=== PATIENT | male | born 2000 | race African-American/Black ===

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

== ENCOUNTER → 2025-02-19 | Emergency (ER) | payer MEDICAID, OTHER ==
[~2025-02-19] VITALS: Ht 172.7 cm; Wt 70.0 kg
[2025-02-19 12:36] VITALS: BP 115/67; PULSE 59; RESP 16; TEMP 36.9; O2SAT 99
== END ==
LOC: ER 14:51
DX: Z02.89 Encounter for other administrative examinations (principal); J45.909 Unspecified asthma, uncomplicated; F10.90 Alcohol use, unspecified, uncomplicated; F12.90 Cannabis use, unspecified, uncomplicated; Y90.9 Presence of alcohol in blood, level not specified
CPT/HCPCS: 99283